=== PATIENT | male | born 1965 | race Caucasian/White ===

== ENCOUNTER → 2020-09-21 | Outpatient (CLI) | payer MEDICARE, OTHER ==
[~2020-09-21] MED LIST: APRISO0.375 GM PO; ATHLETIC FOOT C30 GM TP; BACTRIM 400-801 EACH PO; BUSPIRONE HCL15 MG PO; CIPRO500 MG PO; CRESTOR5 MG PO; ECOTRIN81 MG PO; FLOMAX0.4 MG PO; HUMULIN 70100 UNIT/1 SC; IMDUR ER TAB 3030 MG PO; IRON325 M1 PO; JANUVIA100 MG PO; KEFLEX CAP 500500 MG PO; LEXAPRO20 MG PO; LOPRESSOR 50 MG50 MG PO; METFORMIN HCL1000 M1 PO; NITROSTAT0.4 MG SL; OMEPRAZOLE20 MG PO; PROSCAR 5 MG TAB5 MG PO; RANEXA500 MG PO; SINGULAIR10 MG PO; VENTOLIN HFA 66.7 GM INH; VITAMIN C 500500 MG PO; ZOFRAN ODT 4 MG4 MG PO
== END ==
LOC: HEART 5 08:23
DX: R07.9 Chest pain, unspecified (principal); R42 Dizziness and giddiness; R00.2 Palpitations; R06.02 Shortness of breath
CPT/HCPCS: 78452; 93306; A9502; J2785

== ENCOUNTER → 2020-09-28 | Outpatient (CLI) | payer MEDICARE, OTHER ==
[2020-09-28 17:41] LABS: HEMOGLOBIN 14.8 gm/dl (14.0-17.5); RED BLOOD COUNT 4.95 M/UL (4.20-5.50)
[2020-09-28 18:03] LABS: BUN/CREATININE RATIO 22 (0-10)
== END ==
LOC: LAB 17:00
PROVIDERS: Thoracic Surgery (Cardiothoracic Vascular Surgery)
DX: I20.9 Angina pectoris, unspecified (principal)
CPT/HCPCS: 80053; 85027

== ENCOUNTER → 2020-10-05 | Outpatient (CLI) | payer MEDICARE, OTHER ==
[2020-10-05 10:40] LABS: HEMOGLOBIN 14.6 gm/dl (14.0-17.5); RED BLOOD COUNT 4.85 M/UL (4.20-5.50); WHITE BLOOD COUNT 5.2 K/UL (4.5-11.0)
[2020-10-05 11:05] LABS: BUN/CREATININE RATIO 22 (0-10)
== END ==
LOC: LAB 09:45
PROVIDERS: Internal Medicine Interventional Cardiology
DX: R07.89 Other chest pain (principal); E11.9 Type 2 diabetes mellitus without complications; I10 Essential (primary) hypertension; E78.5 Hyperlipidemia, unspecified; R00.2 Palpitations; R06.02 Shortness of breath
CPT/HCPCS: 36415; 80048; 85025; 85610; 85730

== ENCOUNTER 2020-10-09 19:30 | Emergency (ER) | payer MEDICARE, OTHER | END 2020-10-09 21:25 | disposition home or self-care (01) | LOC: ER1 19:30 | DX: R33.9 Retention of urine, unspecified (principal); J45.909 Unspecified asthma, uncomplicated; E11.9 Type 2 diabetes mellitus without complications; I10 Essential (primary) hypertension | CPT/HCPCS: 51702; 82962; 93005; 99152; 99283; C1769; J7030 ==

== ENCOUNTER 2021-03-22 01:01 | Emergency (ER) | payer MEDICARE, OTHER | END 2021-03-22 01:38 | disposition home or self-care (01) | LOC: ER1 01:01 | DX: E11.65 Type 2 diabetes mellitus with hyperglycemia (principal); Z79.4 Long term (current) use of insulin | CPT/HCPCS: 82962; 99284 ==

== ENCOUNTER 2021-11-03 11:20 | Emergency (ER) | payer MEDICARE, OTHER ==
[2021-11-03 12:58] LABS: BORDETELLA PARAPERTUSSIS Not Detected (Not Detectd); BORDETELLA PERTUSSIS Not Detected (Not Detectd); CHLAMYDIA PNEUMONIAE Not Detected (Not Detectd); CORONAVIRUS HKU1 Not Detected (Not Detectd); CORONAVIRUS NL63 Not Detected (Not Detectd); CORONAVIRUS OC43 Not Detected (Not Detectd); CORONOAVIRUS 229E Not Detected (Not Detectd); HUMAN METAPNEUMOVIRUS Not Detected (Not Detectd); HUMAN RHINOVIRUS/ENTEROVIRUS Not Detected (Not Detectd); INFLUENZA A Not Detected (Not Detectd); INFLUENZA B Not Detected (Not Detectd); MYCOPLASMA PNEUMONIAE Not Detected (Not Detectd); PARAINFLUENZA VIRUS 1 Not Detected (Not Detectd); PARAINFLUENZA VIRUS 2 Not Detected (Not Detectd); PARAINFLUENZA VIRUS 3 Not Detected (Not Detectd); PARAINFLUENZA VIRUS 4 Not Detected (Not Detectd); RESPIRATORY SYNCYTIAL VIRUS Not Detected (Not Detectd)
[2021-11-03 13:06] LABS: HEMOGLOBIN 14.5 gm/dl (14.0-17.5); RED BLOOD COUNT 5.02 M/UL (4.20-5.50); WHITE BLOOD COUNT 7.5 K/UL (4.5-11.0)
[2021-11-03 13:31] LABS: BUN/CREATININE RATIO 21 (0-10)
[2021-11-03 14:06] LABS: SARS-CoV-2 NOT DETECTED (Not Detectd)
[2021-11-03] MEDS ORDERED: OMNICEF 300 MG300 MG PO (14:42)
[2021-11-03] MEDS ORDERED: DELSYM30 MG/5 ML PO (14:42)
== END 2021-11-03 14:55 | disposition home or self-care (01) ==
LOC: ER1 11:20
PROVIDERS: Physician Assistant Medical
DX: J02.0 Streptococcal pharyngitis (principal); I13.10 Hypertensive heart and chronic kidney disease without heart failure, with stage 1 through stage 4 chronic kidney disease, or unspecified chronic kidney disease; E11.22 Type 2 diabetes mellitus with diabetic chronic kidney disease; N18.9 Chronic kidney disease, unspecified; Z20.822 Contact with and (suspected) exposure to COVID-19
CPT/HCPCS: 71045; 80053; 85025; 87081; 87633; 87880; 99283

== ENCOUNTER 2021-11-15 19:32 | Emergency (ER) | payer MEDICARE, OTHER, MEDICAID ==
[~2021-11-15 19:32] MED LIST changes: +DELSYM30 MG/5 ML PO; +OMNICEF 300 MG300 MG PO
== END 2021-11-15 22:45 | disposition home or self-care (01) ==
LOC: ER1 19:32
DX: R51.9 Headache, unspecified (principal); E11.9 Type 2 diabetes mellitus without complications; I25.10 Atherosclerotic heart disease of native coronary artery without angina pectoris; I10 Essential (primary) hypertension
CPT/HCPCS: 70450; 99284